=== PATIENT | male | born 1965 | race Caucasian/White ===

== ENCOUNTER 2020-06-10 14:51 | Emergency (ER) | payer MEDICAID ==
[~2020-06-10] VITALS: Ht 170.2 cm; Wt 68.0 kg
--- NOTE | 2020-06-10 17:17 | NUR ---
urine sent to lab
[2020-06-10 18:06] LABS: BILIRUBIN,URINE NEGATIVE (NEGATIVE); COLOR,URINE YELLOW (YELLOW); LEUKOCYTE ESTERASE ,URINE NEGATIVE (NEGATIVE); NITRITE, URINE NEGATIVE (NEGATIVE); PH,URINE 7.5 (5.0-8.0); PROTEIN,URINE NEGATIVE (NEGATIVE); UGLUCOSE NEGATIVE (NEGATIVE); UROBILINOGEN,URINE 0.2 EU/dL (0.2)
[2020-06-10 18:14] LABS: BASOPHILS # (AUTO) 0.1 /CMM (0.0-0.2); BASOPHILS % (AUTO) 1.7 % (0.0-2.0); EOSINOPHILS % (AUTO) 6.4 % (0.0-6.0); HEMATOCRIT 33 % (39-51); HEMOGLOBIN 11.5 g/dL (13.5-17.5); LYMPHOCYTES % (AUTO) 33.6 % (20.0-44.0); MEAN CORPUSCULAR HGB CONC 35 g/dl (31.0-36.0); MEAN CORPUSCULAR VOLUME 97 fL (80-96); MONOCYTES # (AUTO) 0.4 /CMM (0.1-1.30); MONOCYTES % (AUTO) 7.3 % (2.0-12.0); PLATELET COUNT (AUTO) 343 /CMM (150-450); RED BLOOD CELL COUNT(AUTO) 3.41 MIL/uL (4.5-6.0); WHITE BLOOD COUNT (AUTO) 5.8 K/uL (4.3-11.0)
[2020-06-10 18:15] LABS: CALCIUM, SERUM 8.2 mg/dL (8.5-10.1); CARBON DIOXIDE 29 mmol/L (21-32); CHLORIDE 102 mmol/L (98-107); GLUCOSE 79 mg/dL (74-106); POTASSIUM 3.7 mmol/L (3.5-5.1); SODIUM SERUM 138 mmol/L (136-145); UREA NITROGEN, BLOOD 17 mg/dL (7-18)
[2020-06-10 18:18] LABS: ALANINE AMINOTRANSFERASE 107 U/L (12-78)
[2020-06-10 18:34] LABS: ALCOHOL, BLOOD < 3 mg/dL (0-0); ALKALINE PHOSPHATASE 60 U/L (46-116); ASPARTATE AMINOTRANSFERASE 116 U/L (15-37); BILIRUBIN,DIRECT 0.2 mg/dL (0.0-0.2); BILIRUBIN,TOTAL 0.5 mg/dL (0.2-1.0); TOTAL PROTEIN, SERUM 7.1 g/dL (6.4-8.2)
[2020-06-10 18:36] LABS: ACETAMINOPHEN 0 ug/ml (10-30)
[2020-06-10 18:51] LABS: BACTERIA,URINE None seen /HPF (None Seen); SQUAMOUS EPITHELIAL CELL,UR 0-2 /HPF (None Seen); WBC,URINE 0-2 /HPF (0-3)
--- NOTE | 2020-06-10 19:48 | NUR ---
pt bibself, homeless, c/o feelingmore depressed, want's to go to [facility] as voluntary. pt aox4 rr even and unlabored. no sob noted. no nvd at this time. no acute distress noted. pt evaluated by dr. german.
--- NOTE | 2020-06-10 20:09 | NUR ---
CALLED FOR COVID SWAB.
[2020-06-10] MEDS ORDERED: LEVOTHYROXINE SODIUM 75 MCG TABLET PO SCH (20:30)
--- NOTE | 2020-06-10 20:56 | NUR ---
CLINICAL FAXED TO [facility] FOR VOLUNTARY PSYCH ADMISSION.
--- NOTE | 2020-06-10 21:49 | NUR ---
secuirty at bedside for wanding and belonging check.
[2020-06-10] MEDS ORDERED: LEVOTHYROXINE SODIUM 100 MCG TABLET ONE (21:50)
--- NOTE | 2020-06-11 01:28 | NUR ---
PT STATES HE NO LONGER WANTS TO STAY IN ER AND WOULD LIKE TO BE DISCHARGED HOME. PT DENIES SI/ HI. DR CASAREZ AWARE.
--- NOTE | 2020-06-11 01:30 | NUR ---
PT DOES NOT WISH TO WAIT FOR AFTERCARE INSTRUCTIONS. Patient discharged to home in stable condition. Verbal after care instructions given. Patient verbalizes understanding of instruction.
[2020-06-11 02:49] VITALS: BP 135/70
== END 2020-06-11 01:30 | disposition home or self-care (01) ==
LOC: ER 14:59
DX: F32.9 Major depressive disorder, single episode, unspecified (principal); Z59.0 Homelessness; E03.9 Hypothyroidism, unspecified; F15.10 Other stimulant abuse, uncomplicated; Z82.49 Family history of ischemic heart disease and other diseases of the circulatory system; F17.210 Nicotine dependence, cigarettes, uncomplicated; R74.01 Elevation of levels of liver transaminase levels; D64.9 Anemia, unspecified; Z20.828 Contact with and (suspected) exposure to other viral communicable diseases
CPT/HCPCS: 36415; 80048; 80076; 80299; 80307; 80320; 81001; 84439; 84443; 84481; 85025; 87426; 99285; 99406; C9803; G0480

== ENCOUNTER 2020-06-11 08:05 | Emergency (ER) | payer MEDICAID ==
[~2020-06-11] VITALS: Ht 170.2 cm; Wt 61.2 kg
--- NOTE | 2020-06-11 08:40 | NUR ---
CALLED TO TRIAGE,NO ANSWER
[2020-06-11 09:22] LABS: HEMATOCRIT 36 % (39-51); HEMOGLOBIN 12.1 g/dL (13.5-17.5)
[2020-06-11 09:26] LABS: BASOPHILS # (AUTO) 0.2 /CMM (0.0-0.2); BASOPHILS % (AUTO) 3.5 % (0.0-2.0); EOSINOPHILS % (AUTO) 7.6 % (0.0-6.0); LYMPHOCYTES # (AUTO) 1.5 /CMM (0.8-4.8); LYMPHOCYTES % (AUTO) 30.1 % (20.0-44.0); MEAN CORPUSCULAR HGB CONC 34 g/dl (31.0-36.0); MEAN CORPUSCULAR VOLUME 98 fL (80-96); MONOCYTES # (AUTO) 0.3 /CMM (0.1-1.30); MONOCYTES % (AUTO) 6.9 % (2.0-12.0); NEUTROPHILS # (AUTO) 2.6 /CMM (1.8-8.9); NEUTROPHILS % (AUTO) 51.9 % (43.0-81.0); PLATELET COUNT (AUTO) 353 /CMM (150-450); RED BLOOD CELL COUNT(AUTO) 3.69 MIL/uL (4.5-6.0)
[2020-06-11 09:28] LABS: CALCIUM, SERUM 8.7 mg/dL (8.5-10.1); CARBON DIOXIDE 32 mmol/L (21-32); CHLORIDE 100 mmol/L (98-107); CREATININE 0.9 mg/dL (0.6-1.3); GLUCOSE 88 mg/dL (74-106); POTASSIUM 3.8 mmol/L (3.5-5.1); SODIUM SERUM 137 mmol/L (136-145); UREA NITROGEN, BLOOD 16 mg/dL (7-18)
[2020-06-11 09:38] LABS: ALANINE AMINOTRANSFERASE 105 U/L (12-78); ALBUMIN 4.1 g/dL (3.4-5.0); ALCOHOL, BLOOD < 3 mg/dL (0-0); ALKALINE PHOSPHATASE 62 U/L (46-116); ASPARTATE AMINOTRANSFERASE 97 U/L (15-37); BILIRUBIN,DIRECT 0.1 mg/dL (0.0-0.2); BILIRUBIN,TOTAL 0.6 mg/dL (0.2-1.0); TOTAL PROTEIN, SERUM 7.4 g/dL (6.4-8.2)
--- NOTE | 2020-06-11 11:19 | NUR ---
Patient is a 54-year-old male. Patient is alert and oriented x4. Patient was receptive to speaking with this SW at bedside. 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 Patient reports being diagnosed with Depression and PTSD in 2016. Patient stated that he has current suicidal ideations with no plan however patient reported wanting to undergo voluntary psychiatric hospitalization because he does not feel well at this time. 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 Patient reports use of marijuana, denied cigarettes and alcohol. Patient denied homicidal ideation. Patient denied auditory and visual hallucinations. Patient and SW discussed voluntary psychiatric hospitalization and patient reported a past hospitalization at [facility] under the care of Dr. Hammond. Patient reported wanting to follow-up with Dr. Hammond. Patient also reported wanting an adjustment to his psychiatric medications in addition to his current suicidal ideation. SW will refer the patient to [facility] per patients request. SW will follow-up with Dominick at [facility] regarding this referral. Patient had disorganized train of thought and needed redirection from this SW. Patient's speech was clear. Patient maintained appropriate eye contact throughout this assessment. Plan: SW to fax clinicals to [facility] regarding this referral (fax). SW will coordinate with [facility] regarding this patient for a safe and proper discharge.
--- NOTE | 2020-06-11 11:55 | NUR ---
This SW received a call from [facility] from [facility] regarding patient clinicals. Per [facility] COVID test is missing. SW will fax clinicals to [facility] .
--- NOTE | 2020-06-11 14:06 | NUR ---
This SW called from [facility] and spoke with Ella. Per Ella, patient was referred to [facility]. Per Ella, discharges are pending and accepting will be provided following the discharges at [facility]. SW will follow-up with [facility] if no information is provided.
--- NOTE | 2020-06-11 14:19 | NUR ---
SPOKE WITH ARNOLD FROM [facility]. ACCEPTED TO [facility] UNDER THE CARE OF DR. ROMERO (PSYCH) AND DR. HANLEY (MEDICAL). GOING TO UNIT P6 ROOM 614-A. NUMBER TO GIVE REPORT: [phone].
--- NOTE | 2020-06-11 14:49 | NUR ---
AM [facility] OCCUPATIONAL PHYSICIAN TIME AT 1900.
[2020-06-11 15:30] LABS: BILIRUBIN,URINE NEGATIVE (NEGATIVE); BLOOD, URINE TRACE-INTA Ery/uL (NEGATIVE); COLOR,URINE YELLOW (YELLOW); LEUKOCYTE ESTERASE ,URINE NEGATIVE (NEGATIVE); NITRITE, URINE NEGATIVE (NEGATIVE); PROTEIN,URINE NEGATIVE (NEGATIVE); UGLUCOSE NEGATIVE (NEGATIVE); UROBILINOGEN,URINE 0.2 EU/dL (0.2)
[2020-06-11 15:45] LABS: BACTERIA,URINE Few /HPF (None Seen); SQUAMOUS EPITHELIAL CELL,UR None Seen /HPF (None Seen); WBC,URINE 0-2 /HPF (0-3)
--- NOTE | 2020-06-11 19:43 | NUR ---
PT AAOX4. AMBULATORY WITH STEADY GAIT. BIBSELF, ACCORDING TO TRIAGE PT IS +SI, "i want to run in front of traffic" PLACED IN BED 15 ON MONITOR AND PULSE OX. AWAITING FOR ORDERS. SITTER AT BEDSIDE.
--- NOTE | 2020-06-11 22:54 | NUR ---
CALL FROM [facility]. PT ACCEPTED TO [facility] BY DR ROMERO. # FOR REPORT [phone]
--- NOTE | 2020-06-11 23:01 | NUR ---
TRANSPORT CALLED ([facility]) ETA [id number]
[2020-06-12] VITALS: BP 107/58
--- NOTE | 2020-06-12 00:08 | NUR ---
CALLED [facility] TO GIVE REPORT,. SPOKE TO LILI RODRIGUEZ TO GIVE REPORT. WAS TOLD SHE WILL CALL BACK.
--- NOTE | 2020-06-12 00:32 | NUR ---
REPORT GIVEN TO [facility] RODRIGUEZ FOR [facility]
[2020-06-12] MEDS ORDERED: OLANZAPINE 5 MG TABLET ONE (00:50)
[2020-06-12] MEDS ORDERED: OLANZAPINE 5 MG TABLET PO ONE (01:00)
--- NOTE | 2020-06-12 02:48 | NUR ---
REPORT GIVEN TO CAT CABA TRANSFERED TO [facility].
== END 2020-06-12 02:57 ==
LOC: ER 08:08
DX: R45.851 Suicidal ideations (principal); F29 Unspecified psychosis not due to a substance or known physiological condition; F32.9 Major depressive disorder, single episode, unspecified; F41.9 Anxiety disorder, unspecified; E03.9 Hypothyroidism, unspecified; F43.10 Post-traumatic stress disorder, unspecified; F20.9 Schizophrenia, unspecified; Z88.2 Allergy status to sulfonamides; Z91.018 Allergy to other foods
CPT/HCPCS: 36415; 80048-TC; 80076-TC; 81001; 85025-TC; G0480

== ENCOUNTER 2020-06-12 17:03 | Emergency (ER) | payer MEDICAID ==
[~2020-06-12] VITALS: Ht 160 cm; Wt 61.2 kg
[2020-06-12 21:09] LABS: BASOPHILS # (AUTO) 0.1 /CMM (0.0-0.2); BASOPHILS % (AUTO) 1.2 % (0.0-2.0); EOSINOPHILS % (AUTO) 6.4 % (0.0-6.0); HEMATOCRIT 34 % (39-51); HEMOGLOBIN 11.6 g/dL (13.5-17.5); LYMPHOCYTES # (AUTO) 1.8 /CMM (0.8-4.8); LYMPHOCYTES % (AUTO) 32.9 % (20.0-44.0); MEAN CORPUSCULAR HGB CONC 34 g/dl (31.0-36.0); MEAN CORPUSCULAR VOLUME 97 fL (80-96); MONOCYTES # (AUTO) 0.5 /CMM (0.1-1.30); MONOCYTES % (AUTO) 8.2 % (2.0-12.0); NEUTROPHILS # (AUTO) 2.8 /CMM (1.8-8.9); NEUTROPHILS % (AUTO) 51.3 % (43.0-81.0); PLATELET COUNT (AUTO) 334 /CMM (150-450); RED BLOOD CELL COUNT(AUTO) 3.47 MIL/uL (4.5-6.0); WHITE BLOOD COUNT (AUTO) 5.5 K/uL (4.3-11.0)
[2020-06-12 21:15] LABS: CALCIUM, SERUM 8.8 mg/dL (8.5-10.1); CARBON DIOXIDE 31 mmol/L (21-32); CHLORIDE 104 mmol/L (98-107); CREATININE 1.2 mg/dL (0.6-1.3); GLUCOSE 81 mg/dL (74-106); SODIUM SERUM 142 mmol/L (136-145); UREA NITROGEN, BLOOD 16 mg/dL (7-18)
[2020-06-12 21:22] LABS: ALANINE AMINOTRANSFERASE 87 U/L (12-78); ALCOHOL, BLOOD < 3 mg/dL (0-0); ALKALINE PHOSPHATASE 60 U/L (46-116); ASPARTATE AMINOTRANSFERASE 75 U/L (15-37); BILIRUBIN,DIRECT 0.1 mg/dL (0.0-0.2); BILIRUBIN,TOTAL 0.4 mg/dL (0.2-1.0); TOTAL PROTEIN, SERUM 7.2 g/dL (6.4-8.2)
[2020-06-12 21:38] LABS: BILIRUBIN,URINE Negative (NEGATIVE); COLOR,URINE YELLOW (YELLOW); LEUKOCYTE ESTERASE ,URINE Negative (NEGATIVE); NITRITE, URINE Negative (NEGATIVE); PROTEIN,URINE Negative (NEGATIVE); UGLUCOSE Negative (NEGATIVE); UROBILINOGEN,URINE 0.2 EU/dL (0.2)
[2020-06-12 21:51] LABS: WBC,URINE 0-2 /HPF (0-3)
[2020-06-12 21:52] LABS: BACTERIA,URINE Rare /HPF (None Seen); SQUAMOUS EPITHELIAL CELL,UR 0-2 /HPF (None Seen)
--- NOTE | 2020-06-12 23:02 | NUR ---
FACESHEET AND CLINICALS FAXED TO [facility].
--- NOTE | 2020-06-13 01:30 | NUR ---
PT ACCEPTED TO [facility] BY DR SALOMON. # FOR REPORT [phone]
--- NOTE | 2020-06-13 01:48 | NUR ---
[facility] ETA [id number]
--- NOTE | 2020-06-13 01:51 | NUR ---
UPDATE ETA [id number]
--- NOTE | 2020-06-13 04:27 | NUR ---
[facility] at bedside for transport to [facility]
[2020-06-13 04:47] VITALS: BP 107/82
== END 2020-06-13 04:49 ==
LOC: ER 17:07
DX: R45.851 Suicidal ideations (principal); Z20.828 Contact with and (suspected) exposure to other viral communicable diseases; F43.10 Post-traumatic stress disorder, unspecified; E03.9 Hypothyroidism, unspecified; F41.9 Anxiety disorder, unspecified; D64.9 Anemia, unspecified; R74.01 Elevation of levels of liver transaminase levels; Z88.2 Allergy status to sulfonamides; Z91.018 Allergy to other foods; F32.9 Major depressive disorder, single episode, unspecified
CPT/HCPCS: 36415; 80048; 80076; 80299; 80307; 80320; 81001; 85025; 87426; 99285; C9803; G0480

== ENCOUNTER 2020-06-23 18:35 | Emergency (ER) | payer MEDICAID ==
[~2020-06-23] VITALS: Ht 165.1 cm; Wt 63.5 kg
--- NOTE | 2020-06-23 20:58 | NUR ---
COVID SWAB COLLECTED AND SENT TO LAB
--- NOTE | 2020-06-23 20:58 | NUR ---
Carmen layton in [facility] - 06/23/20 at 2144 by ASA URINE COLLECTED AND SENT TO LAB
--- NOTE | 2020-06-23 21:00 | NUR ---
URINE COLLECTED AND SENT TO LAB
[2020-06-23 21:12] LABS: BASOPHILS # (AUTO) 0.1 /CMM (0.0-0.2); BASOPHILS % (AUTO) 1.7 % (0.0-2.0); EOSINOPHILS % (AUTO) 5.7 % (0.0-6.0); HEMATOCRIT 33 % (39-51); HEMOGLOBIN 11.1 g/dL (13.5-17.5); MEAN CORPUSCULAR HGB CONC 34 g/dl (31.0-36.0); MEAN CORPUSCULAR VOLUME 98 fL (80-96); MONOCYTES # (AUTO) 0.4 /CMM (0.1-1.30); MONOCYTES % (AUTO) 7.9 % (2.0-12.0); NEUTROPHILS # (AUTO) 2.3 /CMM (1.8-8.9); NEUTROPHILS % (AUTO) 45.7 % (43.0-81.0); PLATELET COUNT (AUTO) 299 /CMM (150-450); RED BLOOD CELL COUNT(AUTO) 3.34 MIL/uL (4.5-6.0); WHITE BLOOD COUNT (AUTO) 5.1 K/uL (4.3-11.0)
[2020-06-23 21:16] LABS: CALCIUM, SERUM 8.8 mg/dL (8.5-10.1); CARBON DIOXIDE 32 mmol/L (21-32); CHLORIDE 101 mmol/L (98-107); CREATININE 1.1 mg/dL (0.6-1.3); GLUCOSE 88 mg/dL (74-106); POTASSIUM 4.6 mmol/L (3.5-5.1); SODIUM SERUM 138 mmol/L (136-145); UREA NITROGEN, BLOOD 11 mg/dL (7-18)
[2020-06-23 21:16] LABS: BILIRUBIN,URINE Negative (NEGATIVE); COLOR,URINE YELLOW (YELLOW); LEUKOCYTE ESTERASE ,URINE Negative (NEGATIVE); NITRITE, URINE Negative (NEGATIVE); PROTEIN,URINE Negative (NEGATIVE); UGLUCOSE Negative (NEGATIVE); UROBILINOGEN,URINE 0.2 EU/dL (0.2)
[2020-06-23 21:33] LABS: ALANINE AMINOTRANSFERASE 47 U/L (12-78); ALBUMIN 3.7 g/dL (3.4-5.0); ALCOHOL, BLOOD < 3 mg/dL (0-0); ALKALINE PHOSPHATASE 61 U/L (46-116); ASPARTATE AMINOTRANSFERASE 40 U/L (15-37); BILIRUBIN,DIRECT 0.1 mg/dL (0.0-0.2); BILIRUBIN,TOTAL 0.2 mg/dL (0.2-1.0); TOTAL PROTEIN, SERUM 6.6 g/dL (6.4-8.2)
[2020-06-23 21:40] LABS: ACETAMINOPHEN 0 ug/ml (10-30)
--- NOTE | 2020-06-24 02:06 | NUR ---
PT ACCEPTED TO [facility] ACCEPTING MD: DR. NELSON NUMBER FOR REPORT: [phone]
--- NOTE | 2020-06-24 02:08 | NUR ---
[facility] ETA 45MINUTES
[2020-06-24 02:51] VITALS: BP 135/95
--- NOTE | 2020-06-24 02:52 | NUR ---
REPORT GIVEN TO MICHAEL STARKEY FROM [facility] FOR [facility]
--- NOTE | 2020-06-24 02:52 | NUR ---
REPORT GEIVEN TO [facility] CREW
== END 2020-06-24 02:53 ==
LOC: ER 18:38
DX: R45.851 Suicidal ideations (principal); Z20.828 Contact with and (suspected) exposure to other viral communicable diseases; F32.9 Major depressive disorder, single episode, unspecified; E03.9 Hypothyroidism, unspecified; F41.9 Anxiety disorder, unspecified; Z88.2 Allergy status to sulfonamides
CPT/HCPCS: 36415; 80048; 80076; 80299; 80307; 80320; 81001; 85025; 87426; 99285; C9803; G0480

== ENCOUNTER 2020-07-03 23:46 | Emergency (ER) | payer MEDICAID, MEDICARE ==
[~2020-07-03] VITALS: Ht 170.2 cm; Wt 63.5 kg
[2020-07-04 00:01] VITALS: BP 137/68
== END 2020-07-04 00:07 | disposition home or self-care (01) ==
LOC: ER 23:46
DX: J31.0 Chronic rhinitis (principal); E78.5 Hyperlipidemia, unspecified; Z88.2 Allergy status to sulfonamides; Z91.018 Allergy to other foods; Z60.2 Problems related to living alone

== ENCOUNTER 2020-07-21 17:05 | Emergency (ER) | payer MEDICAID, MEDICARE ==
[~2020-07-21] VITALS: Ht 170.2 cm; Wt 68.0 kg
--- NOTE | 2020-07-21 17:05 | NUR ---
PT BIB SELF C/O SI "FEEL LIKE HURTING MY SELF" PT IS AAOX4, NOT IN RESPIRATORY DISTRESS, V/S STABLE, KEPT RESTED AND COMFORTABLE. WILL CONTINUE TO MONITOR, SITTER AT BEDSIDE.
[2020-07-21 17:31] LABS: BASOPHILS # (AUTO) 0.1 /CMM (0.0-0.2); BASOPHILS % (AUTO) 1.5 % (0.0-2.0); EOSINOPHILS % (AUTO) 6.5 % (0.0-6.0); HEMATOCRIT 40 % (39-51); HEMOGLOBIN 13.6 g/dL (13.5-17.5); LYMPHOCYTES # (AUTO) 1.8 /CMM (0.8-4.8); LYMPHOCYTES % (AUTO) 29.7 % (20.0-44.0); MEAN CORPUSCULAR HGB CONC 34 g/dl (31.0-36.0); MEAN CORPUSCULAR VOLUME 97 fL (80-96); MONOCYTES # (AUTO) 0.3 /CMM (0.1-1.30); MONOCYTES % (AUTO) 5.7 % (2.0-12.0); NEUTROPHILS # (AUTO) 3.4 /CMM (1.8-8.9); NEUTROPHILS % (AUTO) 56.6 % (43.0-81.0); PLATELET COUNT (AUTO) 338 /CMM (150-450); RED BLOOD CELL COUNT(AUTO) 4.15 MIL/uL (4.5-6.0)
[2020-07-21 17:38] LABS: CALCIUM, SERUM 8.8 mg/dL (8.5-10.1); CARBON DIOXIDE 31 mmol/L (21-32); CHLORIDE 99 mmol/L (98-107); CREATININE 1.2 mg/dL (0.6-1.3); GLUCOSE 93 mg/dL (74-106); POTASSIUM 3.7 mmol/L (3.5-5.1); SODIUM SERUM 137 mmol/L (136-145); UREA NITROGEN, BLOOD 17 mg/dL (7-18)
[2020-07-21 17:44] LABS: ALANINE AMINOTRANSFERASE 69 U/L (12-78); ALBUMIN 4.5 g/dL (3.4-5.0); ALCOHOL, BLOOD < 3 mg/dL (0-0); ALKALINE PHOSPHATASE 67 U/L (46-116); ASPARTATE AMINOTRANSFERASE 54 U/L (15-37); BILIRUBIN,DIRECT 0.1 mg/dL (0.0-0.2); BILIRUBIN,TOTAL 0.2 mg/dL (0.2-1.0); TOTAL PROTEIN, SERUM 7.9 g/dL (6.4-8.2)
[2020-07-21 17:47] LABS: ACETAMINOPHEN 0 ug/ml (10-30)
--- NOTE | 2020-07-21 17:50 | NUR ---
CALLED SECURITY FOR WANDING
--- NOTE | 2020-07-21 18:08 | NUR ---
URINE SPECIMEN COLLECTED AND SENT TO LAB.
--- NOTE | 2020-07-22 00:03 | NUR ---
TRANSFER INFORMATION: ACCEPTED TO [facility] ACCEPTING MD: DR. RODRIGUEZ UNIT 2 NUMBER FOR REPORT: [phone] [facility] ETA 30 MINUTES
--- NOTE | 2020-07-22 00:25 | NUR ---
REPORT GIVEN TO MICHAEL MORENO FOR [facility]
[2020-07-22 00:34] VITALS: BP 103/69
--- NOTE | 2020-07-22 00:35 | NUR ---
REPORT GIVEN TO [facility] FOR TRANSPORTATION [facility]. TRANSFERRED TO [facility] IN STABLE CONDITION
== END 2020-07-22 00:38 ==
LOC: ER 17:08
DX: R45.851 Suicidal ideations (principal); F15.10 Other stimulant abuse, uncomplicated; F12.10 Cannabis abuse, uncomplicated; Z20.822 Contact with and (suspected) exposure to COVID-19; Z88.2 Allergy status to sulfonamides; Z91.018 Allergy to other foods; E03.9 Hypothyroidism, unspecified; F32.9 Major depressive disorder, single episode, unspecified; F41.9 Anxiety disorder, unspecified; F43.10 Post-traumatic stress disorder, unspecified
CPT/HCPCS: 36415; 80048; 80076; 80299; 80307; 80320; 85025; 87426; 99285; C9803; G0480

== ENCOUNTER 2020-07-27 23:19 | Emergency (ER) | payer MEDICAID, MEDICARE ==
[~2020-07-27] VITALS: Ht 170.2 cm; Wt 68.0 kg
[2020-07-27 23:25] VITALS: BP 141/84
--- NOTE | 2020-07-27 23:33 | NUR ---
DR. CANCINO AT [facility] FOR EVALUATION
--- NOTE | 2020-07-27 23:36 | NUR ---
Patient discharged to home in stable condition. Written and verbal after care instructions given. Patient left without aci.pt. ambulatory with a steady gait
== END 2020-07-27 23:41 | disposition home or self-care (01) ==
LOC: ER 23:21
DX: J32.9 Chronic sinusitis, unspecified (principal); F31.9 Bipolar disorder, unspecified; F43.10 Post-traumatic stress disorder, unspecified; E03.9 Hypothyroidism, unspecified; F17.200 Nicotine dependence, unspecified, uncomplicated; Z88.2 Allergy status to sulfonamides; Z91.018 Allergy to other foods; Z60.2 Problems related to living alone

== ENCOUNTER 2020-07-31 19:04 | Emergency (ER) | payer MEDICARE, MEDICAID ==
[~2020-07-31] VITALS: Ht 170.2 cm; Wt 63.5 kg
--- NOTE | 2020-07-31 19:24 | NUR ---
urine collected. sent to lab
--- NOTE | 2020-07-31 19:25 | NUR ---
pt bibself +si no specific plans noted. request to go to [facility]. pt aox4 rr even and unlabored. no sob noted. no nvd at this time. no acute distress noted. pt calm and cooperative. aware and vebralized understanding of plan of care
--- NOTE | 2020-07-31 20:09 | NUR ---
lab with pt for blood draw.
[2020-07-31 20:27] LABS: BASOPHILS # (AUTO) 0.1 /CMM (0.0-0.2); BASOPHILS % (AUTO) 1.4 % (0.0-2.0); EOSINOPHILS % (AUTO) 7.1 % (0.0-6.0); HEMATOCRIT 35 % (39-51); HEMOGLOBIN 11.9 g/dL (13.5-17.5); LYMPHOCYTES # (AUTO) 2.2 /CMM (0.8-4.8); LYMPHOCYTES % (AUTO) 34.6 % (20.0-44.0); MEAN CORPUSCULAR HGB CONC 34 g/dl (31.0-36.0); MEAN CORPUSCULAR VOLUME 95 fL (80-96); MONOCYTES # (AUTO) 0.4 /CMM (0.1-1.30); MONOCYTES % (AUTO) 6.4 % (2.0-12.0); NEUTROPHILS # (AUTO) 3.3 /CMM (1.8-8.9); NEUTROPHILS % (AUTO) 50.5 % (43.0-81.0); PLATELET COUNT (AUTO) 272 /CMM (150-450); RED BLOOD CELL COUNT(AUTO) 3.64 MIL/uL (4.5-6.0); WHITE BLOOD COUNT (AUTO) 6.5 K/uL (4.3-11.0)
[2020-07-31 20:35] LABS: ALANINE AMINOTRANSFERASE 106 U/L (12-78); ALBUMIN 3.9 g/dL (3.4-5.0); ALCOHOL, BLOOD < 3 mg/dL (0-0); ALKALINE PHOSPHATASE 62 U/L (46-116); ASPARTATE AMINOTRANSFERASE 53 U/L (15-37); BILIRUBIN,DIRECT 0.1 mg/dL (0.0-0.2); BILIRUBIN,TOTAL 0.2 mg/dL (0.2-1.0); CALCIUM, SERUM 8.3 mg/dL (8.5-10.1); CARBON DIOXIDE 32 mmol/L (21-32); CHLORIDE 101 mmol/L (98-107); CREATININE 1.1 mg/dL (0.6-1.3); GLUCOSE 78 mg/dL (74-106); POTASSIUM 3.5 mmol/L (3.5-5.1); SODIUM SERUM 139 mmol/L (136-145); TOTAL PROTEIN, SERUM 6.7 g/dL (6.4-8.2); UREA NITROGEN, BLOOD 21 mg/dL (7-18)
[2020-07-31 20:40] LABS: ACETAMINOPHEN < 10 ug/ml (10-30)
[2020-07-31 20:49] LABS: BILIRUBIN,URINE NEGATIVE (NEGATIVE); COLOR,URINE YELLOW (YELLOW); NITRITE, URINE NEGATIVE (NEGATIVE); PROTEIN,URINE NEGATIVE (NEGATIVE); UGLUCOSE NEGATIVE (NEGATIVE); UROBILINOGEN,URINE 0.2 EU/dL (0.2)
[2020-07-31 20:50] LABS: LEUKOCYTE ESTERASE ,URINE NEGATIVE (NEGATIVE)
--- NOTE | 2020-07-31 20:51 | NUR ---
[facility] SWABBED, SENT TO LAB.
[2020-07-31 20:52] LABS: BACTERIA,URINE Few /HPF (None Seen); RBC,URINE 21-50 /HPF (0-2); SQUAMOUS EPITHELIAL CELL,UR Few /HPF (None Seen); WBC,URINE 0-2 /HPF (0-3)
--- NOTE | 2020-07-31 21:21 | NUR ---
CLINICAL AND FACESHEET FAXED TO [facility] FOR VOLUNTARY ADMISSION.
--- NOTE | 2020-07-31 21:30 | NUR ---
LAB CALLED REGARDING NEGATIVE COVID RESULT.
--- NOTE | 2020-07-31 23:38 | NUR ---
ACCEPTING INFO: PT ACCEPTED AT [facility] ACCEPTING MD VALENTE PHONE # FOR REPORT PT WILL GO TO UNIT 2
--- NOTE | 2020-07-31 23:42 | NUR ---
[facility] ETA 20-30MIN.
--- NOTE | 2020-07-31 23:47 | NUR ---
REPORT GIVEN TO [facility]
[2020-08-01 00:15] VITALS: BP 132/64
--- NOTE | 2020-08-01 00:25 | NUR ---
TRANSPORT AT BEDSIDE REPORT GIVEN TO EMT.
== END 2020-08-01 00:27 ==
LOC: ER 19:04
DX: R45.851 Suicidal ideations (principal); D64.9 Anemia, unspecified; R74.01 Elevation of levels of liver transaminase levels; Z20.822 Contact with and (suspected) exposure to COVID-19; E03.9 Hypothyroidism, unspecified; F43.10 Post-traumatic stress disorder, unspecified; F32.9 Major depressive disorder, single episode, unspecified; F41.9 Anxiety disorder, unspecified; Z88.2 Allergy status to sulfonamides; Z91.018 Allergy to other foods; F17.200 Nicotine dependence, unspecified, uncomplicated
CPT/HCPCS: 36415; 80048-TC; 80076-TC; 81001; 85025-TC; C9803; G0480

== ENCOUNTER 2020-08-08 20:23 | Emergency (ER) | payer MEDICAID, MEDICARE, OTHER ==
[~2020-08-08] VITALS: Ht 170.2 cm; Wt 65.8 kg
[2020-08-08 20:59] VITALS: BP 134/86
== END 2020-08-08 21:22 | disposition home or self-care (01) ==
LOC: ER 20:23
DX: L84 Corns and callosities (principal); F32.9 Major depressive disorder, single episode, unspecified; F41.9 Anxiety disorder, unspecified; F43.10 Post-traumatic stress disorder, unspecified; E03.9 Hypothyroidism, unspecified; F10.10 Alcohol abuse, uncomplicated; F17.200 Nicotine dependence, unspecified, uncomplicated; Z88.2 Allergy status to sulfonamides; Z91.018 Allergy to other foods; Z60.2 Problems related to living alone; Y90.9 Presence of alcohol in blood, level not specified

== ENCOUNTER 2020-09-01 21:23 | Emergency (ER) | payer MEDICARE, OTHER ==
[~2020-09-01] VITALS: Ht 170.2 cm; Wt 77.1 kg
--- NOTE | 2020-09-01 22:20 | NUR ---
BIBS FOR C/O SEVERE DEPRESSION AND SI. REQUESTING VOLUNTARY PSYCH ADMISSION TO [facility]. PT ALERT, AMBULATORY WITH STEADY GAITS WITH STABLE VS. ABLE TO PROVIDE A VERY SMALL AMOUNT OF URINE. PT ERMAINED ON SI PRECAUTION. WILL CONT TO MONITOR ,
--- NOTE | 2020-09-01 22:26 | NUR ---
SEEN AND ASSESSED BY
--- NOTE | 2020-09-01 22:30 | NUR ---
PHLEB AT BED SIDE FOR BLOOD DRAW
[2020-09-01 22:46] LABS: BASOPHILS # (AUTO) 0.1 /CMM (0.0-0.2); BASOPHILS % (AUTO) 1.3 % (0.0-2.0); EOSINOPHILS % (AUTO) 7.9 % (0.0-6.0); HEMATOCRIT 37 % (39-51); HEMOGLOBIN 12.7 g/dL (13.5-17.5); LYMPHOCYTES # (AUTO) 2.5 /CMM (0.8-4.8); LYMPHOCYTES % (AUTO) 40.9 % (20.0-44.0); MEAN CORPUSCULAR HGB CONC 34 g/dl (31.0-36.0); MEAN CORPUSCULAR VOLUME 94 fL (80-96); MONOCYTES # (AUTO) 0.4 /CMM (0.1-1.30); MONOCYTES % (AUTO) 5.9 % (2.0-12.0); NEUTROPHILS # (AUTO) 2.7 /CMM (1.8-8.9); PLATELET COUNT (AUTO) 299 /CMM (150-450); RED BLOOD CELL COUNT(AUTO) 3.94 MIL/uL (4.5-6.0); WHITE BLOOD COUNT (AUTO) 6.1 K/uL (4.3-11.0)
[2020-09-01 22:54] LABS: BILIRUBIN,URINE NEGATIVE (NEGATIVE); COLOR,URINE YELLOW (YELLOW); LEUKOCYTE ESTERASE ,URINE NEGATIVE (NEGATIVE); NITRITE, URINE NEGATIVE (NEGATIVE); PROTEIN,URINE NEGATIVE (NEGATIVE); UGLUCOSE NEGATIVE (NEGATIVE); UROBILINOGEN,URINE 0.2 EU/dL (0.2)
--- NOTE | 2020-09-01 22:55 | NUR ---
COIVD SWAB SENT TO LAB
[2020-09-01 22:57] LABS: CALCIUM, SERUM 8.3 mg/dL (8.5-10.1); CARBON DIOXIDE 29 mmol/L (21-32); CHLORIDE 102 mmol/L (98-107); CREATININE 1.1 mg/dL (0.6-1.3); GLUCOSE 84 mg/dL (74-106); POTASSIUM 4.1 mmol/L (3.5-5.1); SODIUM SERUM 138 mmol/L (136-145); UREA NITROGEN, BLOOD 16 mg/dL (7-18)
[2020-09-01 23:03] LABS: ALANINE AMINOTRANSFERASE 70 U/L (12-78); ALBUMIN 3.6 g/dL (3.4-5.0); ALCOHOL, BLOOD < 3 mg/dL (0-0); ALKALINE PHOSPHATASE 47 U/L (46-116); ASPARTATE AMINOTRANSFERASE 47 U/L (15-37); BILIRUBIN,DIRECT 0.1 mg/dL (0.0-0.2); BILIRUBIN,TOTAL 0.3 mg/dL (0.2-1.0); TOTAL PROTEIN, SERUM 6.5 g/dL (6.4-8.2)
[2020-09-01 23:04] LABS: ACETAMINOPHEN 0 ug/ml (10-30)
--- NOTE | 2020-09-02 00:25 | NUR ---
CLINICAL AND FACESHEET FAXED TO [facility] FOR VOLUNTARY PSYCH ADMISSION.
--- NOTE | 2020-09-02 03:11 | NUR ---
ACCEPTED TO [facility] UNDER PSYCHIATRIST: DR. LESLIE MARC: ROSALVA WILL PROVIDE ROOM NUMBER UPON GIVING REPORT. #FOR REPORT: [phone]
--- NOTE | 2020-09-02 05:46 | NUR ---
[facility] CALLED FOR TRANSPORT ETA 1000AM.
--- NOTE | 2020-09-02 07:53 | NUR ---
PT PROVIDED W/ BREAKFAST TRAY.
--- NOTE | 2020-09-02 08:19 | NUR ---
# FOR REPORT, , UNIT 2
[2020-09-02 10:05] VITALS: BP 116/61
--- NOTE | 2020-09-02 10:05 | NUR ---
patient picked up by private ambulance going to [facility] in no distress.
== END 2020-09-02 10:05 ==
LOC: ER 21:27
DX: F99 Mental disorder, not otherwise specified (principal); R45.851 Suicidal ideations; Z20.822 Contact with and (suspected) exposure to COVID-19; E03.9 Hypothyroidism, unspecified; Z88.2 Allergy status to sulfonamides; Z91.018 Allergy to other foods; F17.200 Nicotine dependence, unspecified, uncomplicated
CPT/HCPCS: 36415; 80048-TC; 80076-TC; 85025-TC; C9803; G0480

== ENCOUNTER 2020-10-03 15:17 | Emergency (ER) | payer MEDICARE, OTHER ==
[~2020-10-03] VITALS: Ht 170.2 cm; Wt 72.6 kg
--- NOTE | 2020-10-03 15:17 | NUR ---
PT BIB SELF FOR MED CLEARANCE FOR PSYCH ADMISSION IN [facility]. PT IS AAOX4, NOT IN RESPIRATORY DISTRESS, V/S STABLE, KEPT RESTED AND COMFORTABLE. WILL CONTINUE TO MONITOR.
[2020-10-03 15:56] VITALS: BP 134/68
--- NOTE | 2020-10-03 16:00 | NUR ---
SEEN AND EXAMINED BY .
[2020-10-03 16:26] LABS: BASOPHILS # (AUTO) 0.1 /CMM (0.0-0.2); EOSINOPHILS % (AUTO) 7.3 % (0.0-6.0); HEMATOCRIT 40 % (39-51); HEMOGLOBIN 13.4 g/dL (13.5-17.5); LYMPHOCYTES # (AUTO) 2.1 /CMM (0.8-4.8); LYMPHOCYTES % (AUTO) 37.2 % (20.0-44.0); MEAN CORPUSCULAR HGB CONC 34 g/dl (31.0-36.0); MEAN CORPUSCULAR VOLUME 94 fL (80-96); MONOCYTES # (AUTO) 0.4 /CMM (0.1-1.30); MONOCYTES % (AUTO) 6.9 % (2.0-12.0); NEUTROPHILS # (AUTO) 2.7 /CMM (1.8-8.9); NEUTROPHILS % (AUTO) 46.6 % (43.0-81.0); PLATELET COUNT (AUTO) 316 /CMM (150-450); RED BLOOD CELL COUNT(AUTO) 4.24 MIL/uL (4.5-6.0); WHITE BLOOD COUNT (AUTO) 5.7 K/uL (4.3-11.0)
--- NOTE | 2020-10-03 16:30 | NUR ---
ER PHLEB AT BEDSIDE FOR BLOOD DRAW.
[2020-10-03 16:32] LABS: CALCIUM, SERUM 8.4 mg/dL (8.5-10.1); CARBON DIOXIDE 31 mmol/L (21-32); CHLORIDE 102 mmol/L (98-107); CREATININE 1.3 mg/dL (0.6-1.3); GLUCOSE 57 mg/dL (74-106); POTASSIUM 3.7 mmol/L (3.5-5.1); SODIUM SERUM 139 mmol/L (136-145); UREA NITROGEN, BLOOD 13 mg/dL (7-18)
[2020-10-03 16:39] LABS: ALANINE AMINOTRANSFERASE 108 U/L (12-78); ALBUMIN 3.9 g/dL (3.4-5.0); ALKALINE PHOSPHATASE 51 U/L (46-116); ASPARTATE AMINOTRANSFERASE 81 U/L (15-37); BILIRUBIN,DIRECT 0.1 mg/dL (0.0-0.2); BILIRUBIN,TOTAL 0.6 mg/dL (0.2-1.0); TOTAL PROTEIN, SERUM 6.8 g/dL (6.4-8.2)
[2020-10-03 16:40] LABS: ACETAMINOPHEN < 2 ug/ml (10-30); ALCOHOL, BLOOD < 3 mg/dL (0-0)
[2020-10-03 16:40] LABS: BILIRUBIN,URINE Negative (NEGATIVE); COLOR,URINE YELLOW (YELLOW); LEUKOCYTE ESTERASE ,URINE Negative (NEGATIVE); NITRITE, URINE Negative (NEGATIVE); PROTEIN,URINE Negative (NEGATIVE); UGLUCOSE Negative (NEGATIVE); UROBILINOGEN,URINE 0.2 EU/dL (0.2)
--- NOTE | 2020-10-03 17:23 | NUR ---
received a call from the lab regarding covid 19 result, "negative".
--- NOTE | 2020-10-03 19:15 | NUR ---
[facility]
--- NOTE | 2020-10-03 22:54 | NUR ---
ACCEPTED [facility] UN[address] COPPOLA REPORT [phone]
--- NOTE | 2020-10-04 00:31 | NUR ---
[facility] called for transport. ETA 30-45 minutes.
--- NOTE | 2020-10-04 00:51 | NUR ---
REPORT GIVEN TO MICHAEL BLOOD FROM [facility] FROM [facility]
--- NOTE | 2020-10-04 01:03 | NUR ---
[facility] AT BEDSIDE FOR TRANSPORT TO [facility].
== END 2020-10-04 01:16 ==
LOC: ER 15:25
DX: R45.851 Suicidal ideations (principal); E03.9 Hypothyroidism, unspecified; Z20.822 Contact with and (suspected) exposure to COVID-19; Z88.2 Allergy status to sulfonamides; Z91.018 Allergy to other foods; F32.9 Major depressive disorder, single episode, unspecified
CPT/HCPCS: 36415; 80048-TC; 80076-TC; 82962-TC; 85025-TC; C9803; G0480

== ENCOUNTER 2020-11-15 22:58 | Emergency (ER) | payer MEDICAID, MEDICARE ==
[~2020-11-15] VITALS: Ht 170.2 cm; Wt 72.6 kg
[2020-11-16 00:22] LABS: BASOPHILS # (AUTO) 0.1 /CMM (0.0-0.2); BASOPHILS % (AUTO) 1.1 % (0.0-2.0); EOSINOPHILS % (AUTO) 7.3 % (0.0-6.0); HEMATOCRIT 37 % (39-51); HEMOGLOBIN 12.9 g/dL (13.5-17.5); LYMPHOCYTES # (AUTO) 2.8 /CMM (0.8-4.8); LYMPHOCYTES % (AUTO) 40.8 % (20.0-44.0); MEAN CORPUSCULAR HGB CONC 35 g/dl (31.0-36.0); MEAN CORPUSCULAR VOLUME 92 fL (80-96); MONOCYTES # (AUTO) 0.5 /CMM (0.1-1.30); MONOCYTES % (AUTO) 7.6 % (2.0-12.0); NEUTROPHILS % (AUTO) 43.2 % (43.0-81.0); PLATELET COUNT (AUTO) 382 /CMM (150-450); RED BLOOD CELL COUNT(AUTO) 4.02 MIL/uL (4.5-6.0); WHITE BLOOD COUNT (AUTO) 6.8 K/uL (4.3-11.0)
[2020-11-16 00:29] LABS: CALCIUM, SERUM 8.9 mg/dL (8.5-10.1); CARBON DIOXIDE 32 mmol/L (21-32); CHLORIDE 105 mmol/L (98-107); CREATININE 0.9 mg/dL (0.6-1.3); GLUCOSE 100 mg/dL (74-106); POTASSIUM 3.7 mmol/L (3.5-5.1); SODIUM SERUM 142 mmol/L (136-145); UREA NITROGEN, BLOOD 18 mg/dL (7-18)
[2020-11-16 00:35] LABS: ALANINE AMINOTRANSFERASE 21 U/L (12-78); ALBUMIN 3.6 g/dL (3.4-5.0); ALCOHOL, BLOOD < 3 mg/dL (0-0); ALKALINE PHOSPHATASE 59 U/L (46-116); ASPARTATE AMINOTRANSFERASE 15 U/L (15-37); BILIRUBIN,DIRECT 0.1 mg/dL (0.0-0.2); BILIRUBIN,TOTAL 0.4 mg/dL (0.2-1.0); TOTAL PROTEIN, SERUM 6.5 g/dL (6.4-8.2)
[2020-11-16 00:36] LABS: ACETAMINOPHEN 0 ug/ml (10-30)
[2020-11-16 02:15] VITALS: BP 137/65
== END 2020-11-16 06:46 | disposition home or self-care (01) ==
LOC: ER 23:01
DX: R45.851 Suicidal ideations (principal); E03.9 Hypothyroidism, unspecified; Z88.2 Allergy status to sulfonamides; Z91.018 Allergy to other foods; Z20.822 Contact with and (suspected) exposure to COVID-19; F19.10 Other psychoactive substance abuse, uncomplicated; F32.9 Major depressive disorder, single episode, unspecified; F43.10 Post-traumatic stress disorder, unspecified
CPT/HCPCS: 36415; 80048; 80076; 80143; 80320; 85025; 87426; 99285; C9803; G0480

== ENCOUNTER 2020-12-30 16:07 | Emergency (ER) | payer MEDICAID, MEDICARE ==
[~2020-12-30] VITALS: Ht 170.2 cm; Wt 72.6 kg
[2020-12-30 16:46] LABS: BASOPHILS # (AUTO) 0.1 K/uL (0.0-0.2); BASOPHILS % (AUTO) 0.7 % (0.0-2.0); EOSINOPHILS % (AUTO) 1.3 % (0.0-6.0); HEMATOCRIT 39 % (39-51); HEMOGLOBIN 13.2 g/dL (13.5-17.5); LYMPHOCYTES # (AUTO) 1.6 K/uL (0.8-4.8); LYMPHOCYTES % (AUTO) 21.3 % (20.0-44.0); MEAN CORPUSCULAR HGB CONC 34 g/dl (31.0-36.0); MEAN CORPUSCULAR VOLUME 92 fL (80-96); MONOCYTES # (AUTO) 0.6 K/uL (0.1-1.30); MONOCYTES % (AUTO) 8.2 % (2.0-12.0); NEUTROPHILS # (AUTO) 5.3 K/uL (1.8-8.9); NEUTROPHILS % (AUTO) 68.5 % (43.0-81.0); PLATELET COUNT (AUTO) 345 K/uL (150-450); RED BLOOD CELL COUNT(AUTO) 4.26 MIL/uL (4.5-6.0); WHITE BLOOD COUNT (AUTO) 7.7 K/uL (4.3-11.0)
[2020-12-30 16:57] LABS: CALCIUM, SERUM 8.3 mg/dL (8.5-10.1); CARBON DIOXIDE 24 mmol/L (21-32); CHLORIDE 95 mmol/L (98-107); CREATININE 1.3 mg/dL (0.6-1.3); GLUCOSE 76 mg/dL (74-106); POTASSIUM 3.7 mmol/L (3.5-5.1); SODIUM SERUM 129 mmol/L (136-145); UREA NITROGEN, BLOOD 14 mg/dL (7-18)
--- NOTE | 2020-12-30 17:01 | NUR ---
BIBS TO ER. AAOX4. NOT IN RESP DISTRESS. AMBULATORY. CAME IN FOR FEELING DEPRESED THAN USUAL. SEEKING VOLUNTARY ADMISSION. MD WAS AT THE BEDSIDE FOR EVAL. ORDERS RECIVED NOTED AND CARRIED OUT. URINE COLLECTED AND COVID SWAB DONE.
[2020-12-30 17:02] LABS: BILIRUBIN,URINE SMALL (NEGATIVE); COLOR,URINE DARK YELLOW (YELLOW); LEUKOCYTE ESTERASE ,URINE Negative (NEGATIVE); NITRITE, URINE Negative (NEGATIVE); PROTEIN,URINE 30 mg/dl (NEGATIVE); UGLUCOSE Negative (NEGATIVE); UROBILINOGEN,URINE 0.2 EU/dL (0.2)
[2020-12-30 17:03] LABS: ALANINE AMINOTRANSFERASE 54 U/L (12-78); ALBUMIN 4.1 g/dL (3.4-5.0); ALCOHOL, BLOOD 4 mg/dL (0-0); ALKALINE PHOSPHATASE 70 U/L (46-116); ASPARTATE AMINOTRANSFERASE 50 U/L (15-37); BILIRUBIN,DIRECT 0.2 mg/dL (0.0-0.2); BILIRUBIN,TOTAL 0.7 mg/dL (0.2-1.0); TOTAL PROTEIN, SERUM 7.1 g/dL (6.4-8.2)
[2020-12-30 17:21] LABS: BACTERIA,URINE Rare /HPF (None Seen); SQUAMOUS EPITHELIAL CELL,UR Few /HPF (None Seen); WBC,URINE NONE SEEN /HPF (0-3)
[2020-12-30 17:35] LABS: ACETAMINOPHEN < 2 ug/ml (10-30)
--- NOTE | 2020-12-30 18:37 | NUR ---
FAXED [facility] WITH CLINICALS AND FS
--- NOTE | 2020-12-30 18:48 | NUR ---
FOLLOWED UP AND [facility] RECEIVED THE FAX
[2020-12-30 20:05] VITALS: BP 131/78
--- NOTE | 2020-12-30 20:51 | NUR ---
dr duarte at [place] unit 2 will be accepting pt. number for report is [phone], PER [place]
--- NOTE | 2020-12-30 20:56 | NUR ---
[facility] ETE: 45-60 MIN
--- NOTE | 2020-12-30 21:06 | NUR ---
report given to jovi fisher at [facility] unit 2 for lamin
--- NOTE | 2020-12-30 21:39 | NUR ---
[facility] AT BED SIDE TO PROPERTY ASSESSMENT MONITOR THE PT
--- NOTE | 2020-12-30 22:04 | NUR ---
PT WAS PICKED UP BY [facility] AND TRANSFERRED TO [facility] IN STABLE CONDITION.
== END 2020-12-30 22:07 ==
LOC: ER 18:11
DX: F32.9 Major depressive disorder, single episode, unspecified (principal); Z59.0 Homelessness; E87.1 Hypo-osmolality and hyponatremia; F19.10 Other psychoactive substance abuse, uncomplicated; Z88.2 Allergy status to sulfonamides; Z91.018 Allergy to other foods; E03.9 Hypothyroidism, unspecified; Z20.822 Contact with and (suspected) exposure to COVID-19; F43.10 Post-traumatic stress disorder, unspecified
CPT/HCPCS: 36415; 80048-TC; 80076-TC; 81001; 85025-TC; C9803; G0480